=== PATIENT | female | born 2000 | race African-American/Black ===

== ENCOUNTER 2021-03-29 17:07 | Emergency (ER) | payer BC ==
[~2021-03-29] VITALS: Ht 167.6 cm; Wt 61.0 kg
[2021-03-29] MEDS ORDERED: TETANUS, DIPHTHERIA, PERTUSSIS VAC/PF 0.5ML (>7YR OLD) IM ONE (18:30)
[2021-03-29] MEDS ORDERED: LIDOCAINE HCL/EPINEPHRINE 1%-EPI 1:100,000 10 ML VIAL IJ ONE (18:30)
[2021-03-29] MEDS ORDERED: BACITRACIN ZINC OINT UDPKT TOP ONE (18:30)
[2021-03-29] MEDS ORDERED: HYDROCODONE/ACETAMINOPHEN 10/325MG TABLET PO ONE (18:30)
[2021-03-29] MEDS ORDERED: IBUP-2029 MT (20:03)
[2021-03-29] MEDS ORDERED: MUPI1OIN4 TP (20:04)
[2021-03-29] MEDS ORDERED: BACITRACIN 15GM TUBE TOP ONE (20:15)
[2021-03-29 20:20] VITALS: BP 109/60
== END 2021-03-29 20:20 | disposition home or self-care (01) ==
LOC: ER 17:07
DX: S01.81XA Laceration without foreign body of other part of head, initial encounter (principal); S00.31XA Abrasion of nose, initial encounter; J45.909 Unspecified asthma, uncomplicated; V43.62XA Car passenger injured in collision with other type car in traffic accident, initial encounter; Y93.89 Activity, other specified; Y92.488 Other paved roadways as the place of occurrence of the external cause; Y99.8 Other external cause status
CPT/HCPCS: 12013; 70450; 90471; 90715; 99284; Z7610; J3490